=== PATIENT | female | born 1970 | race Caucasian/White ===

== ENCOUNTER 2019-05-05 10:19 | Day surgery (SDC) | payer OTHER ==
[2019-05-05 10:59] VITALS: BMI 27.2
[2019-05-05] MEDS ORDERED: MIDAZOLAM HCL 2 MG/2 ML SINGLE DOSE VIAL ONE ×2 (12:32→13:26)
[2019-05-05] MEDS ORDERED: PROPOFOL 20 ML ONE (12:32)
[2019-05-05] MEDS ORDERED: DEXAMETHASONE SOD PHOSPHATE 4 MG/1 ML VIAL ONE (12:55)
[2019-05-05] MEDS ORDERED: ONDANSETRON 4 MG/2 ML VIAL ONE (12:55)
[2019-05-05] MEDS ORDERED: LIDOCAINE HCL 2% (50ML VIAL) INF ONE (13:40)
[2019-05-05] MEDS ORDERED: oxyCODONE HCL 5 MG TABLET PO PRN ×2 (13:42)
[2019-05-05] MEDS ORDERED: ACETAMINOPHEN 325 MG TABLET (FP) PO PRN (13:42)
[2019-05-05] MEDS ORDERED: ONDANSETRON 4 MG/2 ML VIAL IVPUSH PRN (13:42)
[2019-05-05] MEDS ORDERED: LACTATED RINGERS SOLUTION 1,000 ML IV SCH (13:45)
[2019-05-05 14:48] VITALS: TEMP 97.7
[2019-05-05 15:08] VITALS: BP 120/82; PULSE 82
--- NOTE | 2019-05-10 19:51 | OP ---
DATE OF OPERATION: 05/05/2019 PREOPERATIVE DIAGNOSIS: Left trigger thumb. POSTOPERATIVE DIAGNOSIS: Left trigger thumb. OPERATIVE PROCEDURE: Left trigger thumb release. SURGEON: Kamran Mcfadden MD ANESTHESIA: Local with sedation. COMPLICATIONS: None. ESTIMATED BLOOD LOSS: Minimal. INDICATION FOR PROCEDURE: The patient is a 48-year-old female with the above finding, indicated for operative treatment. Risks, benefits, and alternatives were discussed with the patient at length. Proper informed consent was obtained. PROCEDURE: After proper identification of patient and correct operative site, patient was brought to the operating room, placed supine on the table. All prominences were well padded. Sedation was given by the anesthesiologist. Local anesthesia was given. Left upper extremity was prepped and draped in usual sterile fashion. Well-padded tourniquet was placed as well as a sterile prep. Esmarch bandage was used to exsanguinate the left upper extremity. Tourniquet was inflated to 250 mmHg. Transverse incision made over the A1 kandy to the thumb. Incision was taken sharply through the skin with blunt and sharp dissection through the subcutaneous tissues. A1 kandy was identified and divided, and patient was asked to flex and extend the finger, and no further triggering was noted. Wound was irrigated and repaired with 5-0 fast-absorbing, plain-gut suture. Sterile dressings were applied. Patient was reversed from sedation and brought to the recovery in stable condition. She tolerated the procedure well. KAMRAN MCFADDEN M.D. [id number]
== END 2019-05-05 14:50 | disposition home or self-care (01) ==
LOC: FASU 10:19
PROVIDERS: ATTEND Orthopaedic Surgery Hand Surgery
PROC: 0LN80ZZ Release Left Hand Tendon, Open Approach (ICD-10-PCS; principal; 2019-05-05 12:00)
DX: M65.312 Trigger thumb, left thumb (principal)
CPT/HCPCS: 84703

== ENCOUNTER 2023-06-11 06:38 | Day surgery (SDC) | payer OTHER ==
[2023-06-06 15:28] VITALS: BMI 30.2
[2023-06-11] MEDS ORDERED: PROPOFOL 20 ML ONE (07:14)
[2023-06-11] MEDS ORDERED: LIDOCAINE HCL/PF 2% SDV 5ML VIAL ONE (07:14)
[2023-06-11] MEDS ORDERED: MIDAZOLAM HCL 2 MG/2 ML SINGLE DOSE VIAL ONE (07:14)
[2023-06-11] MEDS ORDERED: LIDOCAINE HCL 2% (20ML MULTI-DOSE VIAL) ONE (07:19)
[2023-06-11] MEDS ORDERED: DEXAMETHASONE SOD PHOSPHATE 4 MG/1 ML VIAL ONE (08:05)
[2023-06-11 08:48] VITALS: TEMP 97.3
[2023-06-11 09:15] VITALS: BP 138/89; PULSE 95; RESP 18
== END 2023-06-11 09:15 | disposition home or self-care (01) ==
LOC: FASU 06:38
PROVIDERS: ATTEND Orthopaedic Surgery Hand Surgery
PROC: 0LN70ZZ Release Right Hand Tendon, Open Approach (ICD-10-PCS; principal; 2023-06-11 08:10)
DX: M65.311 Trigger thumb, right thumb (principal)

== ENCOUNTER 2023-06-11 20:51 | Emergency (ER) | payer OTHER ==
[2023-06-11 21:01] VITALS: BP 132/86; PULSE 112; RESP 16; TEMP 98.5; BMI 30.2
[2023-06-11] MEDS ORDERED: ACETAMINOPHEN WITH CODEINE 300MG/30MG TABLET PO ONE (21:15)
[2023-06-11] MEDS ORDERED: KETOROLAC TROMETHAMINE 60 MG/2 ML VIAL IM ONE (21:15)
[2023-06-11] MEDS ORDERED: KETOROLAC TROMETHAMINE 30 MG/1 ML VIAL ONE (21:17)
[2023-06-11] MEDS ORDERED: MAG HYDROX/AL HYDROX/SIMETH 30 ML UNIT-DOSE CUP ONE (21:18)
[2023-06-11] MEDS ORDERED: MAG HYDROX/AL HYDROX/SIMETH 30 ML UNIT-DOSE CUP PO ONE (21:24)
== END 2023-06-11 22:33 | disposition home or self-care (01) ==
LOC: FER 20:51
PROC: 3E0233Z Introduction of Anti-inflammatory into Muscle, Percutaneous Approach (ICD-10-PCS; principal; 2023-06-11)
DX: R51.9 Headache, unspecified (principal); T41.45XA Adverse effect of unspecified anesthetic, initial encounter
CPT/HCPCS: 99284-25

== ENCOUNTER 2024-11-26 18:15 | Emergency (ER) | payer OTHER ==
[2024-11-26 18:51] VITALS: RESP 18; TEMP 98; BMI 22.2
[2024-11-26] MEDS: ACETAMINOPHEN 1000 MG/100 ML BAG IVPB ONE (18:54)
[2024-11-26] MEDS ORDERED: ACETAMINOPHEN INJECTION 100 ML ONE (18:58)
[2024-11-26] MEDS ORDERED: ALBUTEROL SO4 2.5/IPRATROPIUM 0.5 INH SOL 3 ML VIAL.NEB. NEB ONE (18:58)
[2024-11-26] MEDS ORDERED: ONDANSETRON 4 MG/2 ML VIAL ONE (18:58)
[2024-11-26] MEDS ORDERED: FAMOTIDINE 20 MG/50 ML IVPB 20 MG/50 ML MG IVPB ONE (18:58)
[2024-11-26] MEDS: ONDANSETRON 4 MG TABLET PO ONE (19:00)
[2024-11-26] MEDS: SODIUM CHLORIDE 1,000 ML IV STA (19:06)
[2024-11-26] MEDS: ALBUTEROL SO4 2.5/IPRATROPIUM 0.5 INH SOL 3 ML VIAL.NEB. NEB STA (19:07)
[2024-11-26] MEDS: FAMOTIDINE 20 MG/50 ML IVPB 20 MG/50 ML MG IVPB ONE (19:08)
[2024-11-26 19:14] LABS: ABSOLUTE IMMATURE GRANULOCYTES 0.02 x10^3/uL (0.0-0.031); BASOPHILS # 0.03 x10^3/uL (0.01-0.08); EOSINOPHIL % 0.2 % (0.7-5.8); EOSINOPHILS # 0.02 x10^3/uL (0.04-0.36); HEMATOCRIT 42.3 % (34.1-44.9); HEMOGLOBIN 14.1 g/dL (11.2-15.7); MCHC 33.3 g/dl (32.2-35.5); MEAN CELL VOLUME 83.4 fl (79.4-94.8); MEAN PLT VOLUME 9.9 fl (9.4-12.3); MONOCYTE # 0.53 x10^3/uL (0.24-0.86); MONOCYTE % 4.8 % (4.7-12.5); PLATELET COUNT 350 x10^3/uL (182-369); RDW 13.8 % (12.3-16.6)
[2024-11-26 19:26] LABS: ALBUMIN 4.8 g/dl (3.4-5.0); BILIRUBIN,TOTAL 0.7 mg/dl (0.2-1); CREATININE 0.6 mg/dl (0.6-1.3); POTASSIUM 3.7 mmol/L (3.5-5.1); TOT PROT 7.6 g/dl (6.4-8.2)
[2024-11-26 19:38] VITALS: PULSE 100
[2024-11-26 20:47] VITALS: BP 132/92
[2024-11-26 21:28] LABS: HIV INTERPRETATION NEGATIVE (NEGATIVE)
[2024-11-26 21:29] LABS: HCV DIAGNOSTIC IN-HOUSE W/RFLX NON-REACTIVE (NONREACTIVE)
== END 2024-11-26 20:46 | disposition home or self-care (01) ==
LOC: FER 18:15
PROC: 3E033GC Introduction of Other Therapeutic Substance into Peripheral Vein, Percutaneous Approach (ICD-10-PCS; principal; 2024-11-26)
PROC: 3E033NZ Introduction of Analgesics, Hypnotics, Sedatives into Peripheral Vein, Percutaneous Approach (ICD-10-PCS; 2024-11-26)
PROC: 3E0F7GC Introduction of Other Therapeutic Substance into Respiratory Tract, Via Natural or Artificial Opening (ICD-10-PCS; 2024-11-26)
DX: R11.2 Nausea with vomiting, unspecified (principal); R10.9 Unspecified abdominal pain
CPT/HCPCS: 36415; 71045-TC-FY; 74019-TC-FY; 80053; 83690; 85025; 86803; 87389; 99284-25; J0131